=== PATIENT | male | born 1985 | race American Indian/Alaskan Native ===

== ENCOUNTER 2019-08-04 10:43 | Emergency (ER) | payer SELFPAY ==
--- NOTE | 2019-08-04 12:01 | Event Note ---
ED Screening Note Date of service: 08/04/19 Time: 12:00 ED Screening Note: 33 y/o male reports that he has a headache after passing out on Wednesday while urinating. This initial assessment/diagnostic orders/clinical plan/treatment(s) is/are subject to change based on patients health status, clinical progression and re- assessment by fellow clinical providers in the ED. Further treatment and workup at subsequent clinical providers discretion. Patient/guardian urged not to elope from the ED as their condition may be serious if not clinically assessed and managed. Initial orders include:
--- NOTE | 2019-08-04 15:04 | Emergency Department Report ---
HPI - General Time Seen by Provider: 08/04/19 11:58 - HPI HPI: Room 36 The patient is a 33-year-old male presenting with a chief complaint of headache. The patient states 3 days ago in the evening he awakened to go to the bathroom. While urinating the patient states he began to feel dizzy and passed out striking his head. The patient states she's had an intermittent headache since the fall. The patient states she did not go to the hospital for medical evaluation. Patient denies any preceding chest pain or shortness of breath. Patient denies nausea vomiting or diarrhea. Patient denies any recent flights or long car trips. Patient currently denies complaints Location: [See above] Duration: [See above] Quality: [See above] Severity: [See above] Timing: [See above] Context: [See above] Modifying factors: [See above] Associated signs and symptoms: [see above] ED Past Medical Hx - Past Medical History Previous Medical History?: No - Surgical History Past Surgical History?: No - Family History Family history: no significant - Social History Smoking Status: Current Every Day Smoker (1/2 pack per day) Substance Use Type: None (denies illicit drug use), Alcohol (occasional) - Medications Home Medications: Home Medications Medication Instructions Recorded Confirmed Last Taken Type Cyclobenzaprine [Flexeril] 10 mg PO TID PRN #15 tablet 03/10/13 Unknown Rx HYDROcodone/APAP 5-325 [[place] 1 each PO Q6HR PRN #20 tablet 03/10/13 Unknown Rx 5/325 mg] Butalb/Acetaminophen/Caffeine 2 cap PO Q8HR PRN #20 cap 08/04/19 Unknown Rx [Fioricet 50-300-40 mg CAP] ED Review of Systems ROS: Stated complaint: HEADACHE Other details as noted in HPI Constitutional: no symptoms reported Eyes: denies: eye pain ENT: denies: throat pain Respiratory: denies: shortness of breath Cardiovascular: denies: chest pain Endocrine: no symptoms reported Gastrointestinal: denies: abdominal pain, nausea, vomiting, diarrhea Genitourinary: denies: dysuria Musculoskeletal: denies: back pain Neurological: headache Physical Exam - Physical Exam Vital Signs: Vital Signs 08/04/19 08/04/19 11:36 11:59 Temperature 98.5 F Pulse Rate 72 Respiratory 18 Rate Blood Pressure 125/79 O2 Sat by Pulse 100 Oximetry Physical Exam: GENERAL: The patient is well-developed well-nourished male sitting in chair not appearing to be in acute distress. [] HEENT: Normocephalic. Atraumatic. Extraocular motions are intact. Patient has moist mucous membranes. NECK: Supple. Trachea midline CHEST/LUNGS: Clear to auscultation. There is no respiratory distress noted. HEART/CARDIOVASCULAR: Regular. There is no tachycardia. There is no gallop rub or murmur. ABDOMEN: Abdomen is soft, nontender. Patient has normal bowel sounds. There is no abdominal distention. SKIN: There is no rash. There is no edema. There is no diaphoresis. NEURO: The patient is awake, alert, and oriented. The patient is cooperative. The patient has no focal neurologic deficits. The patient has normal speech and gait. Cranial nerves II through XII grossly intact, motor MUSCULOSKELETAL: There is no axial tenderness to palpation. There is no evidence of acute injury. ED Course Vital Signs 08/04/19 08/04/19 11:36 11:59 Temperature 98.5 F Pulse Rate 72 Respiratory 18 Rate Blood Pressure 125/79 O2 Sat by Pulse 100 Oximetry ED Medical Decision Making - Lab Data Result diagrams: 08/04/19 15:25 08/04/19 15:25 Laboratory Tests 08/04/19 08/04/19 08/04/19 15:25 15:25 15:25 WBC 5.7 RBC 4.93 Hgb 14.7 Hct 44.3 MCV 90 MCH 30 MCHC 33 RDW 15.8 H Plt Count 338 Seg Neutrophils % Lab Rn D-Dimer 135.00 Sodium 141 Potassium 4.2 Chloride 103.2 Carbon Dioxide 23 Anion Gap 19 BUN 13 Creatinine 0.6 L Estimated GFR > 60 BUN/Creatinine Ratio 22 Glucose 93 Calcium 9.8 Total Bilirubin 0.40 AST 23 ALT 24 Alkaline Phosphatase 55 Total Creatine Kinase 249 H CK-MB (CK-2) 2.1 CK-MB (CK-2) Rel Index 0.8 Troponin T < 0.010 Total Protein 8.4 H Albumin 4.6 Albumin/Globulin Ratio 1.2 TSH Free T4 08/04/19 15:25 WBC RBC Hgb Hct MCV MCH MCHC RDW Plt Count Seg Neutrophils % D-Dimer Sodium Potassium Chloride Carbon Dioxide Anion Gap BUN Creatinine Estimated GFR BUN/Creatinine Ratio Glucose Calcium Total Bilirubin AST ALT Alkaline Phosphatase Total Creatine Kinase CK-MB (CK-2) CK-MB (CK-2) Rel Index Troponin T Total Protein Albumin Albumin/Globulin Ratio TSH 0.818 Free T4 0.79 - EKG Data -: EKG Interpreted by Me EKG shows normal: sinus rhythm Rate: normal - EKG Data When compared to previous EKG there are: previous EKG unavailable Interpretation: other (no ischemic changes seen) - Radiology Data Radiology results: report reviewed (CT head), image reviewed (CT head) [facility] [address] [place] [address] Cat Scan Report Signed Patient: MARILU BLACK MR#: [id number] : 1985 Acct:[id number] Age/Sex: 33 / M ADM Date: 08/04/19 Loc: ED Attending Dr: Ordering Physician: ISAIAH GOMES MD Date of Service: 08/04/19 Procedure(s): CT head/brain wo con Accession Number(s): [id number] cc: ISAIAH GOMES MD CT head/brain wo con INDICATION / CLINICAL INFORMATION: 33 years Male; syncope, fall, now with intermittent headaches. TECHNIQUE: Routine CT head without contrast. All CT scans at this location are performed using CT dose reduction for ALARA by means of automated exposure control. COMPARISON: None. FINDINGS: BRAIN / INTRACRANIAL CONTENTS: The brain demonstrate appropriate attenuation. The ventricular system is within normal limits in size and configuration. There is no CT evidence of acute intracranial hemorrhage or significant mass effect. ORBITS: No significant abnormality of visualized orbits. SINUSES / MASTOIDS: No significant abnormality the visualized paranasal sinuses or mastoid air cells. CRANIOCERVICAL JUNCTION: No significant abnormality. ADDITIONAL FINDINGS: None. IMPRESSION: 1. There is no CT evidence of acute intracranial process. Signer Name: Serafin Almaraz MD Signed: 08/04/2019 3:34 PM Workstation Name: [id number] Transcribed By: MR Dictated By: Serafin Almaraz MD Electronically Authenticated By: Serafin Almaraz MD Signed Date/Time: 08/04/19 1534 DD/ 1530 TD/TT: - Differential Diagnosis syncope, closed head injury, dehydration, PE Critical care attestation.: If time is entered above; I have spent that time in minutes in the direct care of this critically ill patient, excluding procedure time. ED Disposition Clinical Impression: Syncope, Closed head injury Disposition: DC-01 TO HOME OR SELFCARE Is pt being admited?: No Does the pt Need Aspirin: No Condition: Stable Instructions: Syncope (ED) Additional Instructions: Return to the emergency department should you develop worsening symptoms, inabil ity to tolerate food or liquids, high fever or any other concerns Prescriptions: Butalb/Acetaminophen/Caffeine [Fioricet 50-300-40 mg CAP] 2 cap PO Q8HR PRN #20 cap PRN Reason: Headache Referrals: [facility] [Outside] - 3-5 Days JELANI FERNANDES MD [Staff Physician] - 3-5 Days (Dr Fernandes is a neurologist. Please follow-up with him for further evaluation) Time of Disposition: 16:17
[2019-08-04 15:35] LABS: Hematocrit 44.3 % (35.5-45.6); Hemoglobin 14.7 gm/dl (11.8-15.2); Mean Corpuscular HGB Conc 33 % (32-34); Mean Corpuscular Volume 90 fl (84-94); Platelet Count 338 K/mm3 (140-440); Red Blood Count 4.93 M/mm3 (3.65-5.03); Red Cell Distribution Width 15.8 % (13.2-15.2)
--- NOTE | 2019-08-04 15:38 | Cat Scan Report ---
CT head/brain wo con INDICATION / CLINICAL INFORMATION: 33 years Male; syncope, fall, now with intermittent headaches. TECHNIQUE: Routine CT head without contrast. All CT scans at this location are performed using CT dos e reduction for ALARA by means of automated exposure control. COMPARISON: None. FINDINGS: BRAIN / INTRACRANIAL CONTENTS: The brain demonstrate appropriate attenuation. The ventricular system is within normal limits in size and configuration. There is no CT evidence of acute intracranial hemo rrhage or significant mass effect. ORBITS: No significant abnormality of visualized orbits. SINUSES / MASTOIDS: No significant abnormality the visualized paranasal sinuses or mastoid air cells. CRANIOCERVICAL JUNCTION: No significant abnormality. ADDITIONAL FINDINGS: None. IMPRESSION: 1. There is no CT evidence of acute intracranial process. Signer Name: Serafin Almaraz MD Signed: 08/04/2019 3:34 PM Workstation Name: [id number]
[2019-08-04 16:01] LABS: Creatine Kinase MB 2.1 ng/mL (0.0-4.0)
[2019-08-04 16:04] LABS: Alanine Aminotransferase 24 units/L (7-56); Albumin 4.6 g/dL (3.9-5); BUN/Creatinine Ratio 22; Blood Urea Nitrogen 13 mg/dL (9-20); Calcium 9.8 mg/dL (8.4-10.2); Hemolysis Index 7
[2019-08-04 16:05] VITALS: BP 127/79
[2019-08-04 16:11] LABS: Free T4 (Free Thyroxine) 0.79 ng/dL (0.76-1.46)
[2019-08-04 16:49] LABS: Total Cells Counted 100
[2019-08-04 16:56] LABS: Giant Platelets 1+; RBC Morphology Normal
== END 2019-08-04 16:29 | disposition home or self-care (01) ==
LOC: ED 10:43
DX: S09.90XA Unspecified injury of head, initial encounter (principal); R55 Syncope and collapse; F17.200 Nicotine dependence, unspecified, uncomplicated; Z79.899 Other long term (current) drug therapy; X58.XXXA Exposure to other specified factors, initial encounter; Y93.89 Activity, other specified; Y92.89 Other specified places as the place of occurrence of the external cause; Y99.8 Other external cause status
CPT/HCPCS: 36415; 70450; 80053; 82550; 82553; 84439; 84443; 84484; 85007; 85025; 85379; 93005; 93010